=== PATIENT | female | born 1975 | race Caucasian/White ===

== ENCOUNTER 2024-11-12 11:08 | Emergency (ER) | payer BC, OTHER ==
--- OUTSIDE RECORDS SUMMARY | 2024-11-12 11:11 | XMS REPORT | Continuity of Care Document ---
Author Name Unknown Address [address] [place] [address] Organization [facility] Address 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 Role Phone GLORIA MCCLELLAND Attending Clinician Unavailable Herminio DONATO, Grant Attending Clinician [phone] Payers Payer Name Policy Type Policy Number Effective Date Expirati on Date Source [facility] CHOICE/CHOICE PLUS [id number] 2023 00:00:00 2023 00:00:00 Social History Social Habit Start Date Stop Date Quantity Comments Source Sexual orientation [facility] Sex assigned at 1975 00:00:00 1975 00:00:00 [facility] Smoking Status Start Date Stop Date Source Tobacco smoking consumption unknown [facility] Medications Ordered Medication Name Filled Medication Name Start Date Stop Date Current Medication? Ordering Clinician Indication Dosage Frequency Signature (SIG) Comments Components Source amoxicillin -clavulanat e (Augmentin) 875-125 MG tablet 2022-02 09:35: 49 Yes 1{tbl} Q.5D Take 1 tablet by mouth every 12 (twelve) hours. [facility] Vital Signs Vital Name Observation Time Observation Value Comments S ource Systolic blood pressure 2023-03-05 16:10:00 116 mm[Hg] [facility] Diastolic blood pressure 2023-03-05 16:10:00 77 mm[Hg] [facility] Heart rate 2023-03-05 16:10:00 66 /min [facility] Body temperature 2023-03-05 16:10:00 35.78 [facility] Body height 2023-03-05 16:10:00 160 [facility] Body weight 2023-03-05 16:10:[address] [facility] BMI 2023-03-05 16:10:00 24.27 kg/m2 [facility] Encounters Start Date/Time End Date/Time Encounter Type Admission Type Attending [facility] Care Department Encounter ID Source 2024-02-14 10:00:00 2024-02-14 10:00:00 Outpatient [facility] [id number] [facility] 2023-10-18 12:00:00 2023-10-18 12:00:00 Outpatient GLORIA MCCLELLAND [facility] [id number] [facility] 2023-10-18 12:00:00 2023-10-18 12:00:00 Outpatient [facility] [id number] [facility] 2023-03-05 10:15:00 2023-03-05 11:52:01 Office Visit Grant Durham [facility] [address] [id number] [facility] 2023-02-22 09:30:00 2023-02-22 11:02:58 Office Visit Grant Durham [facility] [address] [id number] [facility]
[2024-11-12] MEDS ORDERED: ASPIRIN 81 MG CHEWABLE TABLET ONE (11:37)
[2024-11-12 11:48] LABS: Absolute Lymphocytes (CBC) 2.0 K/uL (0.7-4.9); Hematocrit 41.2 % (36.0-45.0); Hemoglobin 14.2 g/dL (12.0-15.0); MCH 30.2 pg (27.0-35.0); MCHC 34.4 g/dL (32.0-36.0); MCV 87.8 fL (80-100); MPV 7.7 fL (7.6-11.3); Nucleated RBC Absolute Count 0.0 (0-0); Nucleated Red Blood Cells % 0.1 % (0-0); RBC Red Blood Cell Count 4.69 M/uL (3.86-4.86); White Blood Count 6.80 thou/uL (4.3-10.9)
[2024-11-12 12:08] LABS: ALT/SGPT 35 U/L (13-56); AST/SGOT 12 U/L (15-37); Albumin 3.7 g/dL (3.4-5.0); Albumin/Globulin Ratio 1.1 (1.1-1.8); Alkaline Phosphatase 91 U/L (45-117); Anion Gap 9.8 mEq/L (5.0-15.0); BUN Blood Urea Nitrogen 15 mg/dL (7-18); Globulin 3.5 g/dL (2.3-3.5); Glucose Level 111 mg/dL (74-106); Magnesium 2.6 mg/dL (1.6-2.4); NT PRO-BNP 93 pg/mL (<125); Potassium 3.8 mEq/L (3.5-5.1)
[2024-11-12 12:09] LABS: Bilirubin Indirect, Calculated 0.1 mg/dL (0.2-0.8); Troponin High Sensitivity < 3.0 pg/mL (<58.9)
--- NOTE | 2024-11-12 12:42 | RAD REPORT ---
EXAMINATION: ONE VIEW CHEST XR CLINICAL INDICATION: Female, 48 years old.,CHEST PAIN TECHNIQUE: Frontal chest projection is submitted. Examination is limited by patient positioning and t echnique. COMPARISON: No prior exam. FINDINGS: The lungs are well inflated and clear. No pneumothorax or sizable effusion. The heart is normal in s ize. Mediastinal contours are unremarkable. IMPRESSION: No acute intrathoracic abnormalities.
--- NOTE | 2024-11-12 14:11 | EDPHYS ---
Physician Documentation [facility] Name: Sneha Sandra Age: 48 yrs Sex: Female : 1975 Arrival Date: 11/12/2024 Time: 11:08 Bed 13 Private MD: ED Physician Jose Danielson HPI: 11/12 11:42 This 48 yrs old Female presents to ER via Ambulatory with complaints of Chest Pain. kb 11:42 Patient is a 48-year-old female who presents for chest heaviness that started Sunday kb while at a cook off and subsided after she got home and rested. States the heaviness returned this morning at 745 while driving to work. States has been intermittent since onset this morning. Denies shortness of breath, nausea, vomiting. Denies any medical history. 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 - Infectious Disease History:: Denies. - Social history:: Smoking status: Reported history of juuling and/or vaping. ROS: 11:41 Constitutional: As per HPI kb Exam: 11:39 Constitutional: This is a well developed, well nourished patient who is awake, alert, kb and in no acute distress. Head/Face: Normocephalic, atraumatic. ENT: Moist Mucous membranes Cardiovascular: Regular rate Respiratory: Respirations even and unlabored. No increased work of breathing. Talking in full sentences Skin: Warm, dry with normal turgor. Normal color. MS/ Extremity: Pulses equal, no cyanosis. Neurovascular intact. Full, normal range of motion. Neuro: Awake and alert, GCS 15, oriented to person, place, time, and situation. 11:39 ECG was reviewed by the Attending Physician. Vital Signs: 11:34 BP 128 / 97; Pulse 64; Resp 16; Temp 98.1; Pulse Ox 100% ; iw 12:00 BP 123 / 77; Pulse 64; Resp 15; Pulse Ox 100% ; me1 13:00 BP 116 / 75; Pulse 56; Resp 16; Pulse Ox 100% ; me1 14:00 BP 150 / 89; Pulse 68; Resp 15; Pulse Ox 99% ; me1 MDM: 11:19 Medical Screening Exam initiated kb 14:09 Differential diagnosis: Arrhythmia, acute RI, abnormal electrolytes. Data reviewed: kb vital signs, nurses notes. Consideration of Admission/Observation Escalation of care including admission/observation considered. Admission considered but heart score 1, repeat troponin normal. Patient will follow-up with PCP.. 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 11/12 11:22 Order name: Basic Metabolic Panel; Complete Time: 12:33 iw 11/12 11:22 Order name: CBC with Diff; Complete Time: 11:50 iw 11/12 11:22 Order name: LFT's; Complete Time: 12:33 iw 11/12 11:22 Order name: Magnesium; Complete Time: 12:33 iw 11/12 11:22 Order name: NT PRO-BNP; Complete Time: 12:33 iw 11/12 11:22 Order name: Troponin HS; Complete Time: 12:33 iw 11/12 13:30 Order name: Troponin High Sensitivity; Complete Time: 14:10 kb 11/12 11:22 Order name: XRAY Chest (1 view); Complete Time: 12:45 11/12 11:22 Order name: Cardiac monitoring; Complete Time: 11:44 iw 11/12 11:22 Order name: EKG - Nurse/Tech; Complete Time: 11:44 iw 11/12 11:22 Order name: IV Saline Lock; Complete Time: 11:44 iw 11/12 11:22 Order name: Labs collected and sent; Complete Time: 11:44 iw 11/12 11:22 Order name: O2 Per Protocol; Complete Time: 11:44 iw 11/12 11:22 Order name: O2 Sat Monitoring; Complete Time: 11:44 iw EC:39 Rate is 58 beats/min. Rhythm is regular. QRS Rydal is Normal. AR interval is prolonged kb at 204 msec. QRS interval is normal at 100 msec. QT interval is normal at 443 msec. Administered Medications: 11:50 Drug: Aspirin PO Chewable Tablet 324 mg PO once; 81 mg tablets x 4 Route: PO; ap3 12:36 Follow up: Response: No adverse reaction me1 Disposition Summary: 11/12/24 14:10 Discharge Ordered Notes: Location: Home kb Condition: Stable kb Diagnosis - Chest pain, unspecified kb Followup: kb - With: Emergency Department - When: As needed - Reason: Worsening of condition Followup: kb - With: Private Physician - When: 2 - 3 days - Reason: Recheck today's complaints, Continuance of care, Re-evaluation by your physician Discharge Instructions: - Discharge Summary Sheet kb - Nonspecific Chest Pain, Adult, [id number] kb Forms: - Medication Reconciliation Form kb - Antibiotic Education kb - Prescription Opioid Use kb - Patient Portal Instructions kb - Leadership Thank You Letter kb Signatures: Dispatcher [employer] EDPamela Gregorio, MAYI-C LAST SCOURER-Toneyb Ludmila Sainz RN GABRIELLA iw Zaida Jarvis RN RN ap3 Crystal Jaramillo RN me1 Corrections: (The following items were deleted from the chart) 11:23 11:23 Chest Single View+RAD.RAD.[email or web address] ordered. EDAK EDAK
--- NOTE | 2024-11-12 14:11 | ER ---
Nurse's Notes [facility] Name: Sneha Sandra Age: 48 yrs Sex: Female : 1975 Arrival Date: 11/12/2024 Time: 11:08 Bed 13 Private MD: Diagnosis: Chest pain, unspecified Presentation: 11/12 11:32 Chief complaint: Patient states: had some chest pressure on Sunday , it went away, iw then it happened again while driving to work today. 11:32 Method Of Arrival: Ambulatory iw 11:33 Coronavirus screen: At this time, the client does not indicate any symptoms associated iw with coronavirus-19. Ebola Screen: No symptoms or risks identified at this time. Initial Sepsis Screen: Does the patient meet any 2 criteria? No. Patient's initial sepsis screen is negative. Does the patient have a suspected source of infection? No. Patient's initial sepsis screen is negative. Risk Assessment: Do you want to hurt yourself or someone else? Patient reports no desire to harm self or others. Onset of symptoms was November 12, 2024. 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 - Infectious Disease History:: Denies. - Social history:: Smoking status: Reported history of juuling and/or vaping. Screenin:03 [facility] ED Fall Risk Assessment (Adult) History of falling in the last 3 months, hb including since admission No falls in past 3 months (0 pts) Confusion or Disorientation No (0 pts) Intoxicated or Sedated No (0 pts) Impaired Gait No (0 pts) Mobility Assist Device Used No (0 pt) Altered Elimination No (0 pt) Score/Fall Risk Level 0 - 2 = Low Risk Oriented to surroundings, Maintained a safe environment, Educated pt \T\ family on fall prevention, incl call for assistance when getting out of bed. Abuse screen: Denies threats or abuse. Denies injuries from another. Nutritional screening: No deficits noted. Tuberculosis screening: No symptoms or risk factors identified. Assessment: 12:03 General: Appears in no apparent distress. uncomfortable, Behavior is cooperative, hb crying. Pain: Pain currently is 5 out of 10 on a pain scale. Neuro: Level of Consciousness is awake, alert, obeys commands, Oriented to person, place, time, situation. Cardiovascular: Reports chest pain, Patient's skin is warm and dry. Respiratory: Respiratory effort is even, unlabored, Respiratory pattern is regular, symmetrical. GI: No signs and/or symptoms were reported involving the gastrointestinal system. : No signs and/or symptoms were reported regarding the genitourinary system. EENT: No signs and/or symptoms were reported regarding the EENT system. Derm: Skin is pink, warm \T\ dry. Vital Signs: 11:34 BP 128 / 97; Pulse 64; Resp 16; Temp 98.1; Pulse Ox 100% ; iw 12:00 BP 123 / 77; Pulse 64; Resp 15; Pulse Ox 100% ; me1 13:00 BP 116 / 75; Pulse 56; Resp 16; Pulse Ox 100% ; me1 14:00 BP 150 / 89; Pulse 68; Resp 15; Pulse Ox 99% ; me1 ED Course: 11:19 Patient arrived in ED. iw 11:19 Pamela Putnam FNP-C is [facility]. kb 11:19 Jose Danielson MD is Attending Physician. kb 11:30 Zaida Jarvis, GABRIELLA is Primary Nurse. ap3 11:33 Triage completed. iw 11:34 Arm band placed on. iw 11:43 Initial lab(s) drawn, by me, sent to lab. Inserted saline lock: 20 gauge in right ap3 antecubital area, using aseptic technique. Blood collected. Flushed with 10 mL NS. 11:44 Client placed on continuous cardiac and pulse oximetry monitoring. NIBP monitoring ap3 applied. monitor and storage bin tender on. Pulse ox on. NIBP on. 11:45 XRAY Chest (1 view) In Process Unspecified. EDMS 12:03 Patient has correct armband on for positive identification. Provided Education on: call hb lght . 13:44 Troponin High Sensitivity Sent. me1 14:23 No provider procedures requiring assistance completed. IV discontinued, intact, me1 bleeding controlled, No redness/swelling at site. Pressure dressing applied. Administered Medications: 11:50 Drug: Aspirin PO Chewable Tablet 324 mg PO once; 81 mg tablets x 4 Route: PO; ap3 12:36 Follow up: Response: No adverse reaction me1 Medication: 12:03 VIS not applicable for this client. hb Outcome: 14:10 Discharge ordered by MD. garcia 14:23 Discharged to home ambulatory, with family, me1 14:23 Condition: stable 14:23 Discharge instructions given to patient, Instructed on discharge instructions, follow up and referral plans. Demonstrated understanding of instructions, follow-up care, 14:23 Patient left the ED. me1 Signatures: Dispatcher [employer] EDMN Pamela Putnam, LIFT BUILDER WHOLE-C LIFT BUILDER WHOLE-CkLudmila Wise RN RN iw Janine Galarza RN RN Zaida Jarvis RN RN ap3 Crystal Jaramillo RN RN me1
[2024-11-12 14:47] VITALS: TEMP 98.1
[2024-11-12 14:50] VITALS: BP 150/89; O2SAT 99
== END 2024-11-12 14:23 | disposition home or self-care (01) ==
LOC: ER 11:08
DX: R07.9 Chest pain, unspecified (principal)
CPT/HCPCS: 36415; 71045; 80048; 80076; 83735; 83880; 84484; 85025; 93005; 99284